=== PATIENT | female | born 1965 | race Caucasian/White ===

== ENCOUNTER 2018-09-19 11:26 | Emergency (ER) | payer MEDICARE, MEDICAID ==
[2018-09-19 11:53] VITALS: BMI 26.9
[2018-09-19 11:55] VITALS: BP 129/86; PULSE 98; RESP 20; TEMP 97.8; O2SAT 98
--- NOTE | 2018-09-19 12:52 | ED PDOC ---
Lower Extremity Pain/Injury Time Seen by Provider: 09/19/18 12:17 Chief Complaint (Nursing): Lower Extremity Problem/Injury Chief Complaint (Provider): Lower Extremity Problem History Per: Patient History/Exam Limitations: no limitations Onset/Duration Of Symptoms: Days (2x weeks) Current Symptoms Are (Timing): Still Present Severity: Moderate Additional Complaint(s): 53 year old female with a past medical history of hypertension, asthma, and arthritis presents to the ED with complaints of right foot pain for 2x weeks. Patient states she had right foot surgery in [place] 1x month ago, but due to noncompliance with her post operative care and non-weight bearing status, her bone shifted and now she is scheduled for a second surgery to the right foot on September 29, 2018. Patient is visiting [place] because her father last week, and she was unable to reach her PMD for a refill of Lisinopril/HCTZ and Tramadol prior to [place], which she is requesting refills of now. Patient reports having pain confined to the surgical site, and denies taking medications for pain prior to arrival. Otherwise: (-) knee pain, (-)chest pain, (-) SOB, (-)N/V, (-) visual changes (-) headache (-) calf pain (-) tobacco use. PMD: ([place]) Podiatry: cannot recall, [place] Past Medical History Reviewed: Historical Data, Nursing Documentation, Vital Signs Vital Signs: Last Vital Signs Temp 97.8 F 09/19/18 11:53 Pulse 98 H 09/19/18 11:53 Resp 20 09/19/18 11:53 BP 129/86 09/19/18 11:53 Pulse Ox 98 09/19/18 11:53 - Medical History PMH: Arthritis, Asthma, HTN - Surgical History Surgical History: Hernia Repair Other surgeries: lumbar fusion, right foot surgery, hysterectomy - Family History Family History: States: No Known Family Hx - Social History Alcohol: None Drugs: Denies - Home Medications Home Medications: Ambulatory Orders Medication Instructions Recorded Cyclobenzaprine HCl [Flexeril] 10 mg PO Q8 #15 tab 10/28/14 Oxycodone HCl/Acetaminophen 1 tab PO Q6 #6 tab 10/28/14 [Percocet 325 mg-5 mg] Lisinopril/Hydrochlorothiazide 1 each PO DAILY #14 tablet 09/19/18 [Lisinopril-Hctz 20-25 mg Tab] RX: traMADol [Ultram] 50 mg PO Q6 PRN #12 tab 09/19/18 - Allergies Allergies/Adverse Reactions: Allergies Allergy/AdvReac Type Severity Reaction Status Date / Time aspirin Allergy RASH Verified 09/19/18 12:05 NSAIDS (Non-Steroidal Allergy RASH Verified 09/19/18 12:05 Anti-Inflamma Review of Systems ROS Statement: Except As Marked, All Systems Reviewed And Found Negative Musculoskeletal: Positive for: Foot Pain (right foot (at surgical site)) Physical Exam - Reviewed Nursing Documentation Reviewed: Yes Vital Signs Reviewed: Yes - Physical Exam Comments: GENERAL APPEARANCE: Patient is awake, alert, oriented x 3, resting comfortably, in no acute distress. SKIN: Warm, dry; (-) cyanosis. NECK: Supple ENT: Mucus membranes moist. Airway patent, (-) stridor. LOWER EXTREMITY: Ankle: (-) swelling (-) tenderness, Achilles tendon intact and nontender. Right foot: 4cm well healed surgical incision vertically oriented to distal half of first metatarsal (-) erythema, (-) edema, (-) warmth (-) evidence of cellulitis or infection; (+) decreased foot and ankle ROM secondary to pain, sensation intact throughout lower extremity, (-) calf tenderness. Remainder of lower extremity nontender with FROM. CARDIOVASCULAR: (+) distal pulse. CARDIAC: (-) irregularity CHEST AND RESPIRATORY: breath sounds equal bilaterally (-) rales (-) rhonchi (-) wheezing. Respirations even and nonlabored. NEURO: Mental status as above. Gait steady. Speech clear. (-) facial asymmetry - ECG O2 Sat by Pulse Oximetry: 98 (RA) Pulse Ox Interpretation: Normal Medical Decision Making Medical Decision Makin:15 Clinical Impression: 53 year old female in the ED for a medication refill and for evaluation of pain at surgical site. Patient presents to ED with a normal blood pressure reading. No further intervention required at this time. Patent searched in [facility] Rx with most recent narcotic refill in September 2017. In light of this information, patient will be provided with a prescription for Lisinopril/ HCTZ, and a short supply of Tramadol. Discussed with patient the need to follow up with her doctors upon return home. There is agreement to discharge plan. Return if symptoms persist or worsen. Patient states she fully agrees with and understands discharge instructions. States that she agrees with the plan and disposition. Verbalized and repeated discharge instructions and plan. I have given the patient opportunity to ask any additional questions. ------ Scribe Attestation: Documented by Whit Carpio, acting as a scribe for Whit Licona Provider Scribe Attestation: All medical record entries made by the Scribe were at my direction and personally dictated by me. I have reviewed the chart and agree that the record accurately reflects my personal performance of the history, physical exam, medical decision making, and the department course for this patient. I have also personally directed, reviewed, and agree with the discharge instructions and disposition. Disposition - Clinical Impression Clinical Impression: Medication refill, Pain at surgical site, Foot pain - Patient ED Disposition Is Patient to be Admitted: No Counseled Patient/Family Regarding: Studies Performed, Diagnosis, Need For Followup, Rx Given - Disposition Referrals: [facility] [Outside] Podiatry Clinic [Outside] Disposition: Routine/Home Disposition Time: 12:45 Condition: STABLE Additional Instructions: The emergency medical care you received today was directed at your acute s ymptoms. If you were prescribed any medication, please fill it and take as directed. It may take several days for your symptoms to resolve. Return to the Emergency Department if your symptoms worsen, do not improve, or if you have any other problems. Please contact your doctor in 2 days for re-evaluation and follow up / or call one of the physicians/clinics you have been referred to that are listed on the Patient Visit Information form that is included in your discharge packet. Bring any paperwork you were given at discharge with you along with any medications you are taking to your follow up visit. Our treatment cannot replace ongoing medical care by a primary care provider (PCP) outside of the emergency department. Prescriptions: Lisinopril/Hydrochlorothiazide [Lisinopril-Hctz 20-25 mg Tab] 1 each PO DAILY #14 tablet RX: traMADol [Ultram] 50 mg PO Q6 PRN #12 tab PRN Reason: Pain, Moderate (4-7) Instructions: Muscle and Bone Pain (DC), Medicines for High Blood Pressure, Postoperative Pain (DC) Forms: [facility] (Uzbek) Print Language: PALAUAN - POA Present On Arrival: None
== END 2018-09-19 13:05 | disposition home or self-care (01) ==
LOC: H.ER 11:26
DX: Z76.0 Encounter for issue of repeat prescription (principal); G89.18 Other acute postprocedural pain; M79.671 Pain in right foot; I10 Essential (primary) hypertension; Z79.899 Other long term (current) drug therapy